=== PATIENT | male | born 1935 | race Caucasian/White ===

== ENCOUNTER → 2018-05-16 14:58 | Outpatient (CLI) | payer MEDICARE, OTHER, SELFPAY ==
[2018-05-16 17:57] LABS: Hemoglobin A1c 7.9 % (4.2-6.3)
[2018-05-16 18:01] LABS: AST(SGOT) 47 U/L (15-37); Alanine Aminotransfer ALT/SGPT 30 U/L (16-61); Albumin, Serum 3.2 g/dL (3.2-5.0); Alkaline Phosphatase 101 U/L (45-117); Anion Gap 8 (5-15); BUN 17 mg/dL (7-18); Bilirubin, Direct 0.14 mg/dL (0.00-0.30); Chloride 103 mmol/L (98-107); Cholesterol 142 mg/dL (200); EST Glomerular Filtration Rate 76 mL/min (>60); Est Glom Filt Rate - Afr Amer 92 mL/min (>60); Globulin 4.2 g/dL (2.2-4.2); Glucose 133 mg/dL (74-106); High Density Lipoprotein 42 mg/dL; Potassium 4.1 mmol/L (3.5-5.1); Protein, Total 7.4 g/dL (6.4-8.2); Sodium Level 141 mmol/L (136-145); Triglycerides 142 mg/dL; Very Low Density Lipoprotein 28 mg/dL (5-40)
[2018-05-16 18:11] LABS: Microalbumin,Random Urine 18.1 mg/L (NO RANGE EST.); Microalbumin:Creatinine Ratio 13.9 mg/g CRE (<30 mg/g CRE)
== END ==
PROVIDERS: Family Provider Family Medicine; PCP Family Medicine; Visit Provider Family Medicine
DX: E11.9 Type 2 diabetes mellitus without complications (principal)
CPT/HCPCS: 36415; 80048; 80061; 80076; 82043; 82570; 83036

== ENCOUNTER → 2019-06-02 | Outpatient (CLI) | payer MEDICARE, OTHER, SELFPAY ==
[2019-06-02 14:29] LABS: Microalbumin,Random Urine 5.5 mg/L (NO RANGE EST.); Microalbumin:Creatinine Ratio 14.1 mg/g CRE (<30 mg/g CRE)
[2019-06-02 14:47] LABS: AST(SGOT) 23 U/L (15-37); Alanine Aminotransfer ALT/SGPT 21 U/L (16-61); Alkaline Phosphatase 129 U/L (45-117); Anion Gap 6 (5-15); BUN 14 mg/dL (7-18); BUN/Creat Ratio 15.8 RATIO (10-20); Bilirubin, Direct 0.11 mg/dL (0.00-0.30); Calcium,Total 8.5 mg/dL (8.5-10.1); Chloride 103 mmol/L (98-107); Cholesterol 132 mg/dL (200); Creatinine, Serum 0.89 mg/dL (0.70-1.30); EST Glomerular Filtration Rate 87 mL/min (>60); Est Glom Filt Rate - Afr Amer 106 mL/min (>60); Globulin 4.4 g/dL (2.2-4.2); Glucose 75 mg/dL (74-106); High Density Lipoprotein 41 mg/dL; Potassium 4.1 mmol/L (3.5-5.1); Protein, Total 7.4 g/dL (6.4-8.2); Sodium Level 139 mmol/L (136-145); Triglycerides 102 mg/dL; Very Low Density Lipoprotein 20 mg/dL (5-40)
== END | disposition home or self-care (01) ==
LOC: MFPLAB 11:46
PROVIDERS: Family Provider Family Medicine; PCP Family Medicine; Referring Provider Family Medicine; Visit Provider Family Medicine
DX: E11.9 Type 2 diabetes mellitus without complications (principal)
CPT/HCPCS: 36415; 80048; 80061; 80076; 82043; 82570

== ENCOUNTER → 2019-12-25 | Outpatient (CLI) | payer MEDICARE, OTHER, SELFPAY ==
[2019-12-25 15:49] LABS: Anion Gap 3 (5-15); BUN 16 mg/dL (7-18); BUN/Creat Ratio 17.6 RATIO (10-20); Calcium,Total 8.7 mg/dL (8.5-10.1); Chloride 107 mmol/L (98-107); Creatinine, Serum 0.91 mg/dL (0.70-1.30); EST Glomerular Filtration Rate 85 mL/min (>60); Est Glom Filt Rate - Afr Amer 102 mL/min (>60); Glucose 66 mg/dL (74-106); Potassium 4.2 mmol/L (3.5-5.1); Sodium Level 139 mmol/L (136-145); T4 Total, Thyroxin 12.3 ug/dL (4.5-12.1); Thyroid Stim Hormone (TSH) 4.16 uIU/mL (0.358-3.74)
== END | disposition home or self-care (01) ==
LOC: MFPLAB 14:10
PROVIDERS: PCP Family Medicine; Visit Provider Family Medicine
DX: E03.9 Hypothyroidism, unspecified (principal); E11.8 Type 2 diabetes mellitus with unspecified complications
CPT/HCPCS: 36415; 80048; 84436; 84443

== ENCOUNTER → 2020-04-01 | Outpatient (CLI) | payer MEDICARE, OTHER, SELFPAY ==
[2020-04-01 13:31] LABS: Anion Gap 5 (5-15); BUN 15 mg/dL (7-18); BUN/Creat Ratio 14.9 RATIO (10-20); Calcium,Total 8.4 mg/dL (8.5-10.1); Chloride 102 mmol/L (98-107); Creatinine, Serum 1.01 mg/dL (0.70-1.30); EST Glomerular Filtration Rate 75 mL/min (>60); Est Glom Filt Rate - Afr Amer 91 mL/min (>60); Glucose 122 mg/dL (74-106); Potassium 3.8 mmol/L (3.5-5.1); Sodium Level 138 mmol/L (136-145); T4 Total, Thyroxin 11.7 ug/dL (4.5-12.1); Thyroid Stim Hormone (TSH) 0.81 uIU/mL (0.358-3.74)
== END | disposition home or self-care (01) ==
LOC: MFPLAB 10:55
PROVIDERS: PCP Family Medicine; Visit Provider Family Medicine
DX: E11.8 Type 2 diabetes mellitus with unspecified complications (principal); E03.9 Hypothyroidism, unspecified
CPT/HCPCS: 80048; 84436; 84443

== ENCOUNTER → 2020-10-24 10:30 | Outpatient (CLI) | payer MEDICARE, OTHER, SELFPAY ==
[2020-10-24 12:33] LABS: Thyroid Stim Hormone (TSH) 1.04 uIU/mL (0.358-3.74)
== END ==
PROVIDERS: PCP Family Medicine; Visit Provider Family Medicine
DX: E03.9 Hypothyroidism, unspecified (principal)
CPT/HCPCS: 36415; 84443

== ENCOUNTER 2020-12-21 15:51 | Outpatient (RCR) | payer MEDICARE, OTHER, SELFPAY | END 2020-12-21 23:59 | LOC: IMMUN 15:51 | PROVIDERS: PCP Family Medicine; Visit Provider Family Medicine | DX: Z23 Encounter for immunization (principal) | CPT/HCPCS: 0011A; 0012A ==

== ENCOUNTER → 2021-04-11 11:29 | Outpatient (CLI) | payer MEDICARE, OTHER, SELFPAY ==
[2021-04-11 15:04] LABS: Absolute Lymphocyte Count 1.64 X10^3/uL (0.83-4.51); Absolute Neutrophil Count 4.5 X10^3/uL (2.0-7.7); Basophil# 0.04 X10^3/uL; Basophil% 0.6 % (0-1); Eosinophil# 0.15 X10^3/uL; Eosinophils% 2.2 % (0-5); Hematocrit 42.9 % (40-54); Hemoglobin 13.2 g/dL (13.0-16.5); Lymphocyte # 1.64 X10^3/ul (0.83-4.51); Lymphocyte % 23.5 % (19-41); Mean Corp Hgb Conc 30.8 g/dL (32-36); Mean Corpuscular Hgb 30.3 pg (27.0-32.0); Mean Corpuscular Volume 98.6 fL (80-94); Mean Platelet Vol. 10.1 fl (6.2-12.0); Monocyte# 0.65 X10^3/uL; Monocyte% 9.3 % (0-10); NRBC Flagged by Analyzer 0 % (0-5); Neutrophil # 4.46 X10^3/uL (2.7-7.7); Platelet Count 288 K/mm3 (150-450); RBC Distribution Width CV 14.5 % (11.6-14.6); RBC Distribution Width SD 52.4 fl (35.1-43.9); Red Blood Count 4.35 M/mm3 (4.6-6.2)
[2021-04-11 15:22] LABS: AST(SGOT) 16 U/L (15-37); Alanine Aminotransfer ALT/SGPT 12 U/L (16-61); Albumin, Serum 2.6 g/dL (3.2-5.0); Alkaline Phosphatase 91 U/L (45-117); Bilirubin, Direct 0.09 mg/dL (0.00-0.30); Cholesterol 128 mg/dL (200); Globulin 4.8 g/dL (2.2-4.2); High Density Lipoprotein 43 mg/dL; Protein, Total 7.4 g/dL (6.4-8.2); Thyroid Stim Hormone (TSH) 1.45 uIU/mL (0.358-3.74); Triglycerides 84 mg/dL; Very Low Density Lipoprotein 17 mg/dL (5-40)
== END ==
PROVIDERS: PCP Family Medicine; Referring Provider Family Medicine; Visit Provider Family Medicine
DX: E11.8 Type 2 diabetes mellitus with unspecified complications (principal); R06.00 Dyspnea, unspecified
CPT/HCPCS: 36415; 80061; 80076; 84443; 85025

== ENCOUNTER → 2021-04-18 13:52 | Outpatient (CLI) | payer MEDICARE, OTHER, SELFPAY ==
--- NOTE | 2021-04-18 14:00 | ECHOCS_ITS ---
Reason For Study: Dyspnea on Exertion Procedure This was a 2D Doppler, Color Flow transthoracic echocardiogram. The study was technically difficult. Contrast injection was performed. Exam performed in department. Left Ventricle Based upon the 2D echocardiographic and contrast enhanced images obtained appears to be grossly normal left ventricular size, wall motion, and systolic function. The estimated ejection fraction is 55 %. Diastolic function is indeterminate. Right Ventricle Normal RV size. Normal systolic function. Atria Normal left atrium. Normal right atrium. No doppler evidence for ASD. Mitral Valve There is no mitral annular calcification. Mild focal mitral valve calcification of the anterior leaflet. Trivial mitral valve insufficiency. Tricuspid Valve Normal tricuspid valve. Trivial tricuspid valve insufficiency. Unable to estimate RV systolic pressure/pulmonary artery pressure due to technically difficult study. Aortic Valve The aortic valve is not well visualized. Pulmonic Valve The pulmonic valve is not well visualized. Great Vessels The aortic root is not well visualized. Pericardium/Pleural No pericardial effusion. Medication 22 gauge I.V. with prn adaptor inserted into left arm. Diluted definity 2ml given slow IV push to enhance endocardial definition. MMode/2D Measurements & Calculations LVIDd: 4.8 cm IVSd: 1.3 cm LA dimension: 3.7 cm LVIDs: 3.2 cm LVPWd: 1.1 cm FS: 32.4 % LAV(MOD-sp4): 42.9 ml LA A4 area: 16.5 cm2 Time Measurements MV dec time: 0.26 sec Doppler Measurements & Calculations MV E max massimo: 54.4 cm/sec Lat Peak E' Massimo: 4.2 cm/sec Med Peak E' Massimo: 5.6 cm/sec MV A max massimo: 77.0 cm/sec E/E' lat: 13.0 E/E' med: 9.8 MV E/A: 0.71 MV V2 max: 78.7 cm/sec MV P1/2t max massimo: 46.9 cm/sec Ao V2 max: 170.0 cm/sec MV max P.5 mmHg MV P1/2t: 106.0 msec Ao max P.6 mmHg MV V2 mean: 40.6 cm/sec MV dec slope: 129.7 cm/sec2 MV mean P.78 mmHg MV V2 VTI: 19.5 cm MVA(P1/2t): 2.1 cm2 LV V1 max: 64.9 cm/sec LV V1 max P.7 mmHg ECHO/Echo Complete W/ Contrast Interpretation Summary The study was technically difficult. Contrast injection was performed. Based upon the 2D echocardiographic and contrast enhanced images obtained appea rs to be grossly normal left ventricular size, wall motion, and systolic function. The estimated ejection fraction is 55 %. Mild focal mitral valve calcification of the anterior leaflet. Trivial mitral valve insufficiency. Trivial tricuspid valve insufficiency. Unable to estimate RV systolic pressure/pulmonary artery pressure due to techni cari difficult study. Diastolic function is indeterminate. Ordering Physician: Emerita Lindsay Referring Physician: Emerita Lindsay Performed By: Jimenez New RCS
== END ==
PROVIDERS: PCP Family Medicine; Referring Provider Family Medicine; Visit Provider Family Medicine
DX: R06.00 Dyspnea, unspecified (principal)
CPT/HCPCS: 93306; Q9957; A4216; C8929; J3490

== ENCOUNTER → 2021-05-12 12:11 | Outpatient (CLI) | payer MEDICARE, OTHER, SELFPAY ==
--- NOTE | 2021-05-12 12:14 | RAD_ITS ---
STUDY: X-RAY CHEST REASON FOR EXAM: Male, 85 years old. DYSPNEA TECHNIQUE: PA and lateral views of the chest. COMPARISON: 02/17/2013. FINDINGS: Small to moderate bilateral pleural effusions. Infiltrate/atelectasis in the right lower lobe. There is borderline cardiomegaly. Normal mediastinum and marleny. Normal visualized pulmonary arteries. There is atherosclerotic tortuosity of the aortic arch and descending thoracic aorta. No demonstrated acute osseous changes. There is no demonstrated abnormality of the visualized soft tissue structures of the upper abdomen. RAD/Chest PA and Lateral IMPRESSION: Bilateral pleural effusions. Right lower lung infiltrate/atelectasis Electronically Signed: Timoteo Aguirre MD at 8:52 EDT Tel , Service support ,
== END ==
PROVIDERS: PCP Family Medicine; Referring Provider Family Medicine; Visit Provider Family Medicine
DX: R06.00 Dyspnea, unspecified (principal)
CPT/HCPCS: 71046

== ENCOUNTER → 2021-06-06 12:45 | Outpatient (CLI) | payer MEDICARE, OTHER, SELFPAY ==
[2021-05-19 10:39] VITALS: BMI 31.5
--- NOTE | 2021-06-07 09:45 | PFT_ITS ---
INTRODUCTION: The patient is an 85-year-old male that presents for pulmonary function studies secondary to a diagnosis of dyspnea. Respiratory therapy reported that, although spirometry was reproducible, the patient was unable to exhale for 6 seconds. In addition, the patient was unable to do DLCO. INTERPRETATION: Forced expiration spirometry demonstrates no evidence of a large airways obstructive ventilatory defect. There was no significant response to aerosolized bronchodilators. Spirograms are of poor quality and terminate prior to 6 seconds, likely underestimating FVC. Body plethysmography was performed and revealed a decreased TLC to 2.55 L, 40% of predicted, indicative of a severe restrictive ventilatory impairment. Diffusing capacity was unable to be ob tained. IMPRESSION: Severe restrictive ventilatory impairment. Patient factors are likely to have impacted testing results.
== END ==
PROVIDERS: PCP Family Medicine; Referring Provider Internal Medicine Critical Care Medicine; Visit Provider Internal Medicine Critical Care Medicine
DX: R06.00 Dyspnea, unspecified (principal)
CPT/HCPCS: 94060; 94726

== ENCOUNTER → 2021-06-07 12:22 | Outpatient (CLI) | payer MEDICARE, OTHER, SELFPAY ==
[2021-05-19 10:39] VITALS: BMI 31.5
[2021-06-07 12:54] VITALS: PULSE 67; PULSE 71; PULSE 74; PULSE 78; O2SAT 86; O2SAT 91; O2SAT 95; O2SAT 97
--- NOTE | 2021-06-07 12:56 | CPS ---
Resting Room Air SpO2 91%. Patient walked about 50 ft and SpO2 86% on room air. Placed patient on 2 lpm O2 nasal cannula at this time and recovered SpO2 to 95%. Patient walked another 83 ft with 2 lpm O2, SpO2 95%. Patient's legs were weak and he stated that this is more than he normally walks at one time. Ended testing at this time.
--- NOTE | 2021-06-08 13:43 | PCM.PSN.6M ---
PSN 6 Minute Walk Test 6 Minute Walk Test 6 Minute Walk Test: 6 Minute Walk Test PSN:6-Minute Walk Test Start: 06/07/21 12:53 Freq: Status: Active Protocol: [id number].6MINW Document 06/07/21 12:54 MIRNA (Rec: 06/07/21 12:59 MIRNA [id number]) 6 Minute Walk Test Date Performed 06/07/21 Time Performed 12:30 Height 5 ft 10 in Weight: 99.79 kg Weight in Pounds 220.[address]: Ancelmo Crocker Assistive device used: Walker Pre-test Oxygen Delivery Method Room Air Pulse Ox (%) 91 Pulse Rate (60-100 beats/min) 71 Dyspnea Juan J Scale (0-10) 0 Exertion Juan J Scale (6-20) 6 1st minute Oxygen Delivery Method Room Air Pulse Ox (%) 86 Pulse Rate (60-100 beats/min) 78 2nd minute Oxygen Flow Rate (L/min) (L/min) 2 Oxygen Delivery Method Nasal Cannula Pulse Ox (%) 95 Pulse Rate (60-100 beats/min) 74 Dyspnea Juan J Scale (0-10) 3 Exertion Juan J Scale (6-20) 14 Post-test Oxygen Flow Rate (L/min) (L/min) 2 Oxygen Delivery Method Nasal Cannula Pulse Ox (%) 97 Pulse Rate (60-100 beats/min) 67 Full Laps Walked 2 Partial Lap, Number of Tiles Walked 15 Total Distance Walked (ft) 133 06/07/21 12:56 Cardiopulmonary Services by Sweetie Cavazos Resting Room Air SpO2 91%. Patient walked about 50 ft and SpO2 86% on room air. Placed patient on 2 lpm O2 nasal cannula at this time and recovered SpO2 to 95%. Patient walked another 83 ft with 2 lpm O2, SpO2 95%. Patient's legs were weak and he stated that this is more than he normally walks at one time. Ended testing at this time. Initialized on 06/07/21 12:56 - END OF NOTE Interpretation Interpretation: The patient ambulated 133 feet over the course of 6 minutes beginning on room air with the use of a walker. Pretesting oxygen saturation was noted to be 91% on room air. With ambulation, the farrah oxygen saturation was 86%. 2 L/min of supplemental oxygen was applied and the patient was able to complete an additional minute of testing. Patient reported leg weakness prevented the patient from walking full 6 minutes. Recommendations Recommendations: 2 L/min of supplemental oxygen should be utilized with exertion. The sensitivity for detecting additional oxygen desaturation is limited by the patient's limited walk distance.
== END ==
PROVIDERS: PCP Family Medicine; Referring Provider Internal Medicine Critical Care Medicine; Visit Provider Internal Medicine Critical Care Medicine
DX: R06.00 Dyspnea, unspecified (principal)
CPT/HCPCS: 94618

== ENCOUNTER 2021-07-08 19:31 | Inpatient (IN) | payer MEDICARE, OTHER, SELFPAY ==
[2021-07-08] VITALS (10 sets, daily range): BP systolic 84–117; BP diastolic 53–71; PULSE 79–99; RESP 12–28; TEMP 36.4; O2SAT 66–100; BMI 31.8
[2021-07-08] MEDS: 0.9% Normal Saline 1,000 ML 999 ML IV (19:40)
--- NOTE | 2021-07-08 19:46 | EKG12_ITS ---
Test Reason : SOB Blood Pressure : / mmHG Vent. Rate : 089 BPM Atrial Rate : 089 BPM P-R Int : 190 ms QRS Dur : 096 ms QT Int : 404 ms P-R-T Axes : 029 012 014 degrees QTc Int : 491 ms Sinus rhythm with Premature atrial complexes Prolonged QT Abnormal ECG Confirmed by DAILY LOPEZ, BRONSON ([id number]), editor department LARY CLEMENTE ([id number]) on 07/10/2021 1:34:58 PM Referred By: TREASURE Confirmed By:BRONSON AMBROSIO MD
--- NOTE | 2021-07-08 19:47 | EDS_ITS ---
HPI History of Present Illness Chief Complaint: General Illness Informant: patient and EMS Narrative Narrative: Patient has been feeling poorly and occasional short of breath for the last 2 days. Brought in by family calling EMS tonight because of decreased level of consciousness and inability to get up. Confused. Has a history of restrictive lung disease. Unknown if on home oxygen but hypoxic at 66% on room air here per nursing upon arrival. Also EMS states that family wondering if patient may have taken too many of his pain medication. When asked the patient of this, he states oh probably. [facility] Medical History Acute respiratory failure Diabetes Dyspnea Skin cancer Home Medications aspirin 81 mg tablet,delayed release 81 mg PO DAILY 05/19/21 [History Last Taken Unknown] atorvastatin 80 mg tablet 80 mg PO DAILY 05/19/21 [History Last Taken Unknown] levothyroxine 112 mcg capsule 112 mcg PO DAILY 05/19/21 [History Last Taken Unknown] lisinopril 10 mg-hydrochlorothiazide 12.5 mg tablet 1 tab PO DAILY 05/19/21 [History Last Taken Unknown] metoprolol succinate 200 mg tablet,extended release 24 hr 200 mg PO DAILY 05/19/21 [History Last Taken Unknown] oxybutynin chloride 5 mg tablet 10 mg PO DAILY 05/19/21 [History Last Taken Unknown] pioglitazone 30 mg tablet 30 mg PO DAILY 05/19/21 [History Last Taken Unknown] cholecalciferol (vitamin D3) [Vitamin D3] 125 mcg PO DAILY 07/08/21 [History Last Taken Unknown] hydrocodone-acetaminophen [[place]] 1 tab PO BID PRN 07/08/21 [History Last Taken Unknown] pregabalin [Lyrica] 200 mg PO DAILY 07/08/21 [History Last Taken Unknown] vit C,J-Zo-tajzy-lutein-zeaxan [PreserVision AREDS-2] 2 tab PO DAILY 07/08/21 [History Last Taken Unknown] Allergy/AdvReac Type Severity Reaction Status Date / Time No Known Allergies Allergy Verified 07/08/21 19:45 Social History Smoking Status: Former smoker quit date: 10/28/90 pack-years: 30 ROS ROS ED Review of Systems ROS Unobtainable: due to mental status EXAM Physical Exam Const Vital Signs: 07/08/21 19:32 07/08/21 19:38 07/08/21 19:39 Temperature 97.6 F L 97.6 F L Temperature Source Oral Oral Pulse Rate 99 99 Respiratory Rate 28 H 28 H Respiratory Effort Respiratory Pattern Blood Pressure 84/53 L 84/53 L Blood Pressure Mean 63 63 Pulse Ox 66 89 89 Oxygen Delivery Method Room Air Non-Rebreather Non-Rebreather Oxygen Flow Rate (L/min) 15 15 Fraction of Inspired Oxygen (FIO2) 07/08/21 19:40 07/08/21 19:57 07/08/21 20:41 Temperature 97.6 F L 97.6 F L Temperature Source Oral Temporal Pulse Rate 92 89 81 Respiratory Rate 19 H 22 H 12 Respiratory Effort Normal Respiratory Pattern Normal Blood Pressure 87/54 L 89/55 L Blood Pressure Mean 65 66 Pulse Ox 91 92 99 Oxygen Delivery Method Bi-pap Bi-pap Oxygen Flow Rate (L/min) Fraction of Inspired Oxygen (FIO2) 65 07/08/21 20:52 07/08/21 21:20 07/08/21 23:01 Temperature Temperature Source Pulse Rate 81 79 82 Respiratory Rate 16 14 19 H Respiratory Effort Respiratory Pattern Normal Blood Pressure 89/56 L 117/71 Blood Pressure Mean 67 86 Pulse Ox 100 99 100 Oxygen Delivery Method Bi-pap Bi-pap Oxygen Flow Rate (L/min) Fraction of Inspired Oxygen (FIO2) 60 07/08/21 23:22 07/09/21 00:00 Temperature Temperature Source Pulse Rate 80 Respiratory Rate 18 Respiratory Effort Respiratory Pattern Blood Pressure 126/96 H Blood Pressure Mean 106 Pulse Ox 96 99 Oxygen Delivery Method Nasal Cannula Oxygen Flow Rate (L/min) 2 Fraction of Inspired Oxygen (FIO2) Positive well nourished and well developed General Appearance ED: well developed and NAD HEENT Reports moist mucous membranes normocephalic and atraumatic Eyes PERRL and EOMs intact bilaterally Eyes Narrative: Pinpoint pupils Neck full ROM and supple Resp Resp Narrative: Very shallow respirations and lethargic, no obvious adventitious breath sounds, equal bilaterally. Trachea midline. Cardio regular rate, regular rhythm and no murmurs GI non-tender and non-distended Auscultation: normoactive bowel sounds Palpation: soft Back/Spine no CVA tenderness General Back: other FROM Extremity normal to inspection General Extremety ED: Negative for edema, pulses abnormal or tenderness General Extremity: Negative for edema or pulses abnormal Neuro oriented x3, CN's II-XII intact bilaterally and no sensory deficits noted Neuro Narrative: Confused but not aphasic Kristie Coma Scale: document GCS findings To Voice Obeys Commands Confused 13 Sensorium / Orientation: awake and alert Coordination: other (Generally weak but moves all 4 extremities symmetrically) Skin no rashes or lesions noted and no wounds MDM MDM MDM Narrative Medical decision making narrative: Initially patient had almost 1 L of fluid given by squad, was still mildly hypotensive, he initially came in 84/53 but after the first liter he was at 90 systolic. Another liter was given, and we had him on BiPAP, his VBG just after placing him on BiPAP showed a pH of 7.275 and a PCO2 of 70.4 consistent with hypoventilation (ABG was not able to be obtained). He was 65% on room air prior to giving him any oxygen. He maintained saturations in the high 90s to 100% while on BiPAP. We monitored him for a little while and his pressure came around so he did not require pressors. Soon thereafter family arrived, and then the patient admitted to one of the nurses that he took a handful of his [place] on purpose in order to try to kill himself. Apparently he has been very depressed mostly about his restrictive lung disease and inability to do much because of it. The rest of his work-up is consistent with this showing no sign of an infection, his troponin is 450 significantly elevated with a normal essentially EKG, this is consistent with myocardial damage due to prolonged hypoxemia which is likely the cause. After getting this history, while he was still lethargic I ordered Narcan 0.2 mg to be given, to help wake him up more without putting him into withdrawal. However this was not available here and we were waiting for the pharmacy to send it up and the patient became more awake without needing any stimulation, still a little confused but depressed and crying, GCS 14-15, so the Narcan was discontinued and not given. We will give him a trial off of the BiPAP, he is now on a nasal cannula and satting at 98%. I repeated his Tylenol level from the initial 28, guessing around when the 4-hour level would be after his ingestion. The level actually went down, to 18. This rules out a toxic acetaminophen overdose. Nursing approached me and there was some discussion with the patient and family about the possibility of hospice. Patient does not have the capacity to make such a decision at this time, and from reviewing his records from the pulmonary office he was still undergoing work-up for his restrictive lung disease, a CT was being ordered as an outpatient and has yet to be obtained. As I discussed with him, even after discussing with Dr. Sutherland on for pulmonary who does not know the patient as the patient sees Dr. Crocker, I do not know how severe his restrictive lung disease is from a pulmonary standpoint. After more discussion, family of which there are several members here do not feel comfortable going the hospice route right now and asked us to admit him medically for now as a DNR Comfort Care arrest which I discussed with them. They plan on having a family meeting tomorrow after night baker. Lab Data Attestation: I reviewed the patient's lab results. Labs: Laboratory Results - last 24 hr 07/08/21 07/08/21 07/08/21 19:42 19:42 19:42 WBC 7.3 RBC 3.61 L Hgb 11.0 L Hct 37.0 L MCV 102.5 H MCH 30.5 MCHC 29.7 L RDW Std Deviation 53.5 H RDW Coeff of Neo 14.2 Plt Count 245 MPV 9.2 Immature Gran % (Auto) 0.400 Neut % (Auto) 62.8 Lymph % (Auto) 24.5 [place] % (Auto) 10.5 H Eos % (Auto) 1.4 Baso % (Auto) 0.4 Absolute Neuts (auto) 4.6 Absolute Lymphs (auto) 1.78 Nucleated RBC % 0 PT 13.6 INR 1.1 APTT 29.8 Sodium 140 Potassium 4.4 Chloride 100 Carbon Dioxide 35.0 H Anion Gap 5 BUN 18 Creatinine 1.11 Estim Creat Clear Calc 55.35 Est GFR (MDRD) Af Amer 81 Est GFR (MDRD) Non-Af 67 BUN/Creatinine Ratio 16.2 Glucose 187 H Lactic Acid Calcium 8.0 L Total Bilirubin 0.40 AST 21 ALT 13 L Alkaline Phosphatase 71 Troponin I High Sens 450 H* Total Protein 6.3 L Albumin 2.0 L Globulin 4.3 H Albumin/Globulin Ratio 0.5 L Urine Color Urine Clarity Urine pH Ur Specific [place] Urine Protein Urine Glucose (UA) Urine Ketones Urine Occult Blood Urine Nitrite Urine Bilirubin Urine Urobilinogen Ur Leukocyte Esterase Urine RBC Urine WBC Ur Squamous Epith Cells Urine Bacteria Urine Mucus Salicylates Urine Opiates Screen Urine Methadone Screen Acetaminophen Ur Barbiturates Screen Ur Phencyclidine Scrn Ur Amphetamines Screen U Methamphetamin-MDMA U Benzodiazepines Scrn Urine Cocaine Screen U Cannabinoids Screen Ur Drug Screen Comment 07/08/21 07/08/21 07/08/21 19:42 19:42 20:20 WBC RBC Hgb Hct MCV MCH MCHC RDW Std Deviation RDW Coeff of Neo Plt Count MPV Immature Gran % (Auto) Neut % (Auto) Lymph % (Auto) [place] % (Auto) Eos % (Auto) Baso % (Auto) Absolute Neuts (auto) Absolute Lymphs (auto) Nucleated RBC % PT INR APTT Sodium Potassium Chloride Carbon Dioxide Anion Gap BUN Creatinine Estim Creat Clear Calc Est GFR (MDRD) Af Amer Est GFR (MDRD) Non-Af BUN/Creatinine Ratio Glucose Lactic Acid 2.5 H* Calcium Total Bilirubin AST ALT Alkaline Phosphatase Troponin I High Sens Total Protein Albumin Globulin Albumin/Globulin Ratio Urine Color Yellow Urine Clarity Clear Urine pH 6.5 Ur Specific [place] 1.015 Urine Protein 15 H Urine Glucose (UA) Normal Urine Ketones 5 H Urine Occult Blood 10 H Urine Nitrite Negative Urine Bilirubin Negative Urine Urobilinogen Normal Ur Leukocyte Esterase Negative Urine RBC 0-5 SEEN Urine WBC 0 SEEN Ur Squamous Epith Cells 0 SEEN Urine Bacteria 0 SEEN Urine Mucus 0 SEEN Salicylates < 1.7 L Urine Opiates Screen Urine Methadone Screen Acetaminophen 28.4 Ur Barbiturates Screen Ur Phencyclidine Scrn Ur Amphetamines Screen U Methamphetamin-MDMA U Benzodiazepines Scrn Urine Cocaine Screen U Cannabinoids Screen Ur Drug Screen Comment 07/08/21 07/08/21 20:20 23:20 WBC RBC Hgb Hct MCV MCH MCHC RDW Std Deviation RDW Coeff of Neo Plt Count MPV Immature Gran % (Auto) Neut % (Auto) Lymph % (Auto) [place] % (Auto) Eos % (Auto) Baso % (Auto) Absolute Neuts (auto) Absolute Lymphs (auto) Nucleated RBC % PT INR APTT Sodium Potassium Chloride Carbon Dioxide Anion Gap BUN Creatinine Estim Creat Clear Calc Est GFR (MDRD) Af Amer Est GFR (MDRD) Non-Af BUN/Creatinine Ratio Glucose Lactic Acid Calcium Total Bilirubin AST ALT Alkaline Phosphatase Troponin I High Sens Total Protein Albumin Globulin Albumin/Globulin Ratio Urine Color Urine Clarity Urine pH Ur Specific [place] Urine Protein Urine Glucose (UA) Urine Ketones Urine Occult Blood Urine Nitrite Urine Bilirubin Urine Urobilinogen Ur Leukocyte Esterase Urine RBC Urine WBC Ur Squamous Epith Cells Urine Bacteria Urine Mucus Salicylates Urine Opiates Screen POSITIVE H Urine Methadone Screen NEGATIVE Acetaminophen 18.4 Ur Barbiturates Screen NEGATIVE Ur Phencyclidine Scrn NEGATIVE Ur Amphetamines Screen NEGATIVE U Methamphetamin-MDMA NEGATIVE U Benzodiazepines Scrn NEGATIVE Urine Cocaine Screen NEGATIVE U Cannabinoids Screen NEGATIVE Ur Drug Screen Comment ABG Data ABG results: ABG 07/08/21 20:16 Specimen Type SARAH VBG pH 7.28 L VBG pO2 63 H VBG HCO3 33 H VBG Total CO2 35 H VBG O2 Sat (Calc) 88 H VBG Base Excess 6 H POC Mix VBG pCO2 Pt Tmp 70.4 H* O2 Delivery Device BiPAP Crit Call To/Read Back Yes Blood Gas Notified Whom dr coker Blood Gas Notified Time 20:18:27 Radiography Diagnostic Testing: Radiology Impression Chest X-Ray 07/08/21 20:00 IMPRESSION: 1. Moderate-sized bilateral pleural effusions which appear partially loculated. These are unchanged. 2. Stable infiltrates or atelectasis in the lung bases. ASSESSMENT: ABNORMAL report - There are abnormal findings in this report which may be related or unrelated to the reason for the exam. Electronically Signed: Cruz Ziegler MD at 20:59 EDT Tel , Service support , EKG Initial EKG: Attestation: I personally reviewed and interpreted this EKG as follows: Interpretation: Sinus Rhythm and No Acute Injury Pattern Prior EKG tracings: available for review Prior: Unchanged Discharge Plan Dx/Rx/DC Orders Clinical Impression: Intentional opiate overdose, Restrictive lung disease, Hypoxia, Non-ST elevation [place] (NSTEMI), Suicide gesture Disposition Disposition: Acute Care [facility] Capacity Capacity Assessment Tool Can the patient make a choice & communicate that choice?: Yes Can the patient understand benefits, risks and alternatives?: No Can the patient make a logical, rational choice?: No Is the choice the patient makes consistent w/ their values?: Unable to Determine Is there an impending, emergent risk to the patient?: Yes Does the patient have an Advance Directive?: Comment (Patient states he does, family was unable to find anything written down) Is there a Surrogate Available?: Yes i.e. HCPOA: Yes
[2021-07-08 19:57] LABS: Absolute Lymphocyte Count 1.78 X10^3/uL (0.83-4.51); Absolute Neutrophil Count 4.6 X10^3/uL (2.0-7.7); Basophil# 0.03 X10^3/uL; Basophil% 0.4 % (0-1); Eosinophils% 1.4 % (0-5); Lymphocyte # 1.78 X10^3/ul (0.83-4.51); Lymphocyte % 24.5 % (19-41); Mean Corp Hgb Conc 29.7 g/dL (32-36); Mean Corpuscular Hgb 30.5 pg (27.0-32.0); Mean Corpuscular Volume 102.5 fL (80-94); Mean Platelet Vol. 9.2 fl (6.2-12.0); Monocyte# 0.76 X10^3/uL; Monocyte% 10.5 % (0-10); NRBC Flagged by Analyzer 0 % (0-5); Neutrophil # 4.56 X10^3/uL (2.7-7.7); Neutrophil % 62.8 % (47-70); Platelet Count 245 K/mm3 (150-450); RBC Distribution Width CV 14.2 % (11.6-14.6); RBC Distribution Width SD 53.5 fl (35.1-43.9); Red Blood Count 3.61 M/mm3 (4.6-6.2); White Blood Count 7.3 K/mm3 (4.4-11.0)
--- NOTE | 2021-07-08 20:00 | RAD_ITS ---
EXAM: XR Chest, 1 View CLINICAL INDICATION: 85 years old, Male; sob TECHNIQUE: Frontal view of the chest. This report was created using [employer] report generation technology. COMPARISON: None. FINDINGS: Lungs and pleural spaces: Moderate-sized bilateral pleural effusions which appear partially loculated. Stable infiltrates or atelectasis in the lung bases. No pneumothorax. Heart: Unremarkable. Cardiac silhouette not enlarged. Mediastinum: Central airways and mediastinal contour are unremarkable. Bones/joints: Unremarkable. Soft tissues: Unremarkable. Other findings: Chest x-ray performed 05/12/2021. RAD/Chest 1 View (Portable) IMPRESSION: 1. Moderate-sized bilateral pleural effusions which appear partially loculated. These are unchanged. 2. Stable infiltrates or atelectasis in the lung bases. ASSESSMENT: ABNORMAL report - There are abnormal findings in this report which may be related or unrelated to the reason for the exam. Electronically Signed: Cruz Ziegler MD at 20:59 EDT Tel , Service support ,
[2021-07-08 20:07] LABS: International Normalized Ratio 1.1; Prothrombin Time (Protime)PT. 13.6 SECONDS (11.7-14.9)
[2021-07-08 20:08] LABS: Partial Thromboplast Time 29.8 Seconds (24.1-36.2)
--- NOTE | 2021-07-08 20:20 | ED.RN ---
WHILE STRAIGHT CATHING PATIENT, THIS NURSE ASKED HIM IF HE TOOK TOO MANY OF HIS NORCO AND HE REPLIED YES. THIS NURSE THEN ASKED HIM IF HE TOOK THEM BECAUSE HE WAS IN PAIN OR HE WANTED TO HURT HIMSELF AND HE REPLIED I WAS TRYING TO HURT MYSELF - I WANT TO END IT ALL. DR. AMANDA, [facility] [employer] [facility] NOTIFIED.
[2021-07-08 20:21] LABS: Blood Gas Specimen Type VEN; O2 Delivery Device BiPAP; VBG BASE EXCESS 6 mmol/L (-1.0-3.5); VBG Bicarbonate 33 mmol/L (22-26); VBG PO2 63 mmHg (25-40); VBG SO2 88 % (50-70); VBG TCO2 35 mmol/L (23-33); VBG pCO2 70.4 mmHg (41-51); VBG pH 7.28 (7.32-7.42)
[2021-07-08 20:22] LABS: ALB/GLOB Ratio 0.5 RATIO (0.9-2.4); AST(SGOT) 21 U/L (15-37); Alanine Aminotransfer ALT/SGPT 13 U/L (16-61); Alkaline Phosphatase 71 U/L (45-117); Anion Gap 5 (5-15); BUN 18 mg/dL (7-18); BUN/Creat Ratio 16.2 RATIO (10-20); Chloride 100 mmol/L (98-107); Creatinine, Serum 1.11 mg/dL (0.70-1.30); EST Glomerular Filtration Rate 67 mL/min (>60); Est Glom Filt Rate - Afr Amer 81 mL/min (>60); Estimated Creatinine Clearance 55.35 ml/min; Globulin 4.3 g/dL (2.2-4.2); Glucose 187 mg/dL (74-106); Lactic Acid 2.5 mmol/L (0.4-1.9); Potassium 4.4 mmol/L (3.5-5.1); Protein, Total 6.3 g/dL (6.4-8.2); Sodium Level 140 mmol/L (136-145); Troponin-I HS 450 pg/mL (3.0-78.0)
[2021-07-08 20:31] LABS: Bacteria 0 SEEN /hpf (None Seen); Mucous, Urine 0 SEEN /hpf (<or=2+); Squamous Epithelial Cells - UA 0 SEEN /hpf (0-5); White Blood Cells 0 SEEN /hpf (0-5)
[2021-07-08 20:32] LABS: Color, Urine Yellow (Yellow); Glucose, Dipstick Normal (Normal); Ketone-Dipstick 5 mg/dl (Negative); Leukocyte Esterase-Dipstick Negative /ul (Negative); Nitrite-Dipstick Negative (Negative); Occult Blood-Urine 10 /ul (Negative); Protein-Dipstick 15 mg/dl (Negative); Specific Gravity, Urine 1.015 (1.002-1.030); Urine Bilirubin Dipstick Negative (Negative); Urine Clarity Clear (Clear); Urine Urobilinogen Normal (Normal); Urine pH 6.5 (5.0 - 8.0)
[2021-07-08 20:39] LABS: Red Blood Cells-Urine 0-5 SEEN /hpf (0-5)
[2021-07-08 21:07] LABS: Amphetamine Urine VISTA NEGATIVE (<1000 ng/mL); Barbiturate Urine VISTA NEGATIVE (< 200 ng/mL); Benzodiazepine Urine VISTA NEGATIVE (< 200 ng/mL); Cocaine Urine VISTA NEGATIVE (< 300 ng/mL); Ecstacy Urine VISTA NEGATIVE (< 500 ng/mL); Methadone Urine VISTA NEGATIVE (< 300 ng/mL); PCP Urine VISTA NEGATIVE (< 25 ng/mL); THC Urine VISTA NEGATIVE (< 50 ng/mL); Vista UDS pH Range 6
--- NOTE | 2021-07-08 21:36 | CM.ED ---
SW Note ARMEN Simpson advised that patient took norco overdose and voiced that he was attempting to self harm and hurt self. SW updated MD and sitter needs to be in place. 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 Candida OBRIEN
[2021-07-08 21:52] LABS: Acetaminophen (Tylenol) Level 28.4 ug/mL (10.0-30.0); Salicylate < 1.7 mg/dL (2.8-20.0)
[2021-07-08 23:52] LABS: Reflex Lactate? Y
[2021-07-09] VITALS (13 sets, daily range): BP systolic 99–134; BP diastolic 67–96; PULSE 75–102; RESP 17–21; TEMP 36.1–37; O2SAT 95–100; BMI 36.3
[2021-07-09 00:14] LABS: Acetaminophen (Tylenol) Level 18.4 ug/mL (10.0-30.0)
[2021-07-09 00:46] LABS: Lactic Acid 1.5 mmol/L (0.4-1.9)
--- NOTE | 2021-07-09 00:54 | ED.RN ---
PT OBSERVED SEVERAL TIMES THROUGHOUT ED STAY CRYING, STATING IT JUST WANTS IT ALL TO BE OVER. HE REPORTS NOT WANTING TO LIVE ANYMORE AND HE BELIEVES IN [facility].
--- NOTE | 2021-07-09 01:09 | PCM.HP.STD ---
HPI - General General Date of Admission: 07/09/21 HPI Narrative JACOB MEADE, is a 85 M who presents after being found altered with a decreased level of consciousness by his family. He has a history of peripheral neuropathy that is so severe that he has very poor balance with a walker at home and has difficulty getting around as well as having significant shortness of breath secondary to her restrictive lung disease. He has been placed on oxygen by his jar filler. It appears that today he decided that he no longer wanted to be struggling and therefore purposefully overdosed on his narcotics. He appears to be doing much better now that he is no longer hypoxic down to 66%. He is more alert. He was found to have an elevated troponin which is likely demand ischemia due to his hypoxia therefore will trend now that he is maintaining his oxygen saturations. [facility] Medical History (Updated 07/09/21 @ 02:[address] Eliezer Powers MD) Acute respiratory failure Diabetes Dyspnea Skin cancer Home Medications aspirin 81 mg tablet,delayed release 81 mg PO DAILY 05/19/21 [History Last Taken Unknown] atorvastatin 80 mg tablet 80 mg PO DAILY 05/19/21 [History Last Taken Unknown] levothyroxine 112 mcg capsule 112 mcg PO DAILY 05/19/21 [History Last Taken Unknown] lisinopril 10 mg-hydrochlorothiazide 12.5 mg tablet 1 tab PO DAILY 05/19/21 [History Last Taken Unknown] metoprolol succinate 200 mg tablet,extended release 24 hr 200 mg PO DAILY 05/19/21 [History Last Taken Unknown] oxybutynin chloride 5 mg tablet 10 mg PO DAILY 05/19/21 [History Last Taken Unknown] pioglitazone 30 mg tablet 30 mg PO DAILY 05/19/21 [History Last Taken Unknown] cholecalciferol (vitamin D3) [Vitamin D3] 125 mcg PO DAILY 07/08/21 [History Last Taken Unknown] hydrocodone-acetaminophen [[place]] 1 tab PO BID PRN 07/08/21 [History Last Taken Unknown] pregabalin [Lyrica] 200 mg PO DAILY 07/08/21 [History Last Taken Unknown] vit C,M-Yz-uxfjf-lutein-zeaxan [PreserVision AREDS-2] 2 tab PO DAILY 07/08/21 [History Last Taken Unknown] Allergy/AdvReac Type Severity Reaction Status Date / Time No Known Allergies Allergy Verified 07/08/21 19:45 Family History (Updated 07/09/21 @ 02:[address] Eliezer Powers MD) Other Heart disease Surgical History (Updated 07/09/21 @ 02:[address] Eliezer Powers MD) Status post surgical removal of malignant neoplasm of skin Social History (Reviewed 06/16/21 @ 11:12 by Mery Foley RECONCILIATION MACHINE OPERATOR, RECONCILIATION MACHINE OPERATOR-C) Smoking Status: Former smoker quit date: 10/28/90 pack-years: 30 ROS Constitutional Constitutional: Denies chills, fatigue, fever(s) or malaise Eyes Eyes: Denies blurry vision ENT HEENT: Denies headache(s) or nasal discharge Cardiovascular Cardiovascular: Denies chest pain, dyspnea on exertion or syncope Respiratory/Chest Respiratory/Chest: Reports shortness of breath at rest and shortness of breath with exertion; Denies cough Gastrointestinal Gastrointestinal: Denies constipation, diarrhea, nausea or vomiting Genitourinary Genitourinary: Denies dysuria Neurologic Neurologic: Denies focal weakness, numbness or tremor(s) Psychiatric Psychiatric: Denies anxiety or depression Vital Signs Vital Signs Vital Signs: 07/08/21 19:32 07/08/21 19:38 07/08/21 19:39 Temperature 97.6 F L 97.6 F L Temperature Source Oral Oral Pulse Rate 99 99 Respiratory Rate 28 H 28 H Respiratory Effort Respiratory Pattern Blood Pressure 84/53 L 84/53 L Blood Pressure Mean 63 63 Pulse Ox 66 89 89 Oxygen Delivery Method Room Air Non-Rebreather Non-Rebreather Oxygen Flow Rate (L/min) 15 15 Fraction of Inspired Oxygen (FIO2) 07/08/21 19:40 07/08/21 19:57 07/08/21 20:41 Temperature 97.6 F L 97.6 F L Temperature Source Oral Temporal Pulse Rate 92 89 81 Respiratory Rate 19 H 22 H 12 Respiratory Effort Normal Respiratory Pattern Normal Blood Pressure 87/54 L 89/55 L Blood Pressure Mean 65 66 Pulse Ox 91 92 99 Oxygen Delivery Method Bi-pap Bi-pap Oxygen Flow Rate (L/min) Fraction of Inspired Oxygen (FIO2) 65 07/08/21 20:52 07/08/21 21:20 07/08/21 23:01 Temperature Temperature Source Pulse Rate 81 79 82 Respiratory Rate 16 14 19 H Respiratory Effort Respiratory Pattern Normal Blood Pressure 89/56 L 117/71 Blood Pressure Mean 67 86 Pulse Ox 100 99 100 Oxygen Delivery Method Bi-pap Bi-pap Oxygen Flow Rate (L/min) Fraction of Inspired Oxygen (FIO2) 60 07/08/21 23:22 07/09/21 00:00 07/09/21 00:50 Temperature 97 F L Temperature Source Temporal Pulse Rate 80 81 Respiratory Rate 18 20 H Respiratory Effort Respiratory Pattern Blood Pressure 126/96 H 99/67 Blood Pressure Mean 106 77 Pulse Ox 96 99 100 Oxygen Delivery Method Nasal Cannula Nasal Cannula Oxygen Flow Rate (L/min) 2 2 Fraction of Inspired Oxygen (FIO2) 07/09/21 01:00 Temperature Temperature Source Pulse Rate 79 Respiratory Rate 21 H Respiratory Effort Respiratory Pattern Blood Pressure 99/76 Blood Pressure Mean 83 Pulse Ox 98 Oxygen Delivery Method Oxygen Flow Rate (L/min) Fraction of Inspired Oxygen (FIO2) Weight Weight: 234 lb 9.149 oz Body Mass Index (BMI) 31.8 Physical Exam Const alert, oriented x3 and no apparent distress General Appearance: cooperative HEENT normocephalic and moist oral mucous membranes Eyes PERRL, EOMs intact bilaterally and conjunctivae normal Neck supple and no JVD Resp normal respiratory effort, no retractions, no use of accessory muscles and clear to auscultation bilaterally Auscultation: Negative for crackles, rales, rhonchi or wheezes Cardio regular rate, regular rhythm, S1 normal heart sound, S2 normal heart sound and no murmurs GI soft to palpation, non-tender and non-distended; Negative for hepatosplenomegaly Extremity General Extremity: clubbing and edema; Negative for cyanosis Skin no rashes or lesions noted Neuro no focal motor deficits and no sensory deficits noted Psych affect normal Appearance: appropriate Results Lab / Micro Data Result Diagrams: 07/08/21 19:42 07/08/21 19:42 Labs: Laboratory Results - last 24 hr 07/08/21 19:42: WBC 7.3, RBC 3.61 L, Hgb 11.0 L, Hct 37.0 L, MCV 102.5 H, MCH 30.5, MCHC 29.7 L, RDW Std Deviation 53.5 H, RDW Coeff of Neo 14.2, Plt Count 245, MPV 9.2, Immature Gran % (Auto) 0.400, Neut % (Auto) 62.8, Lymph % (Auto) 24.5, [place] % (Auto) 10.5 H, Eos % (Auto) 1.4, Baso % (Auto) 0.4, Absolute Neuts (auto) 4.6, Absolute Lymphs (auto) 1.78, Nucleated RBC % 0 07/08/21 19:42: PT 13.6, INR 1.1, APTT 29.8 07/08/21 19:42: Sodium 140, Potassium 4.4, Chloride 100, Carbon Dioxide 35.0 H, Anion Gap 5, BUN 18, Creatinine 1.11, Estim Creat Clear Calc 55.35, Est GFR (MDRD) Af Amer 81, Est GFR (MDRD) Non-Af 67, BUN/Creatinine Ratio 16.2, Glucose 187 H, Calcium 8.0 L, Total Bilirubin 0.40, AST 21, ALT 13 L, Alkaline Phosphatase 71, Troponin I High Sens 450 H*, Total Protein 6.3 L, Albumin 2.0 L, Globulin 4.3 H, Albumin/Globulin Ratio 0.5 L 07/08/21 19:42: Lactic Acid 2.5 H* 07/08/21 19:42: Salicylates < 1.7 L, Acetaminophen 28.4 07/08/21 20:20: Urine Color Yellow, Urine Clarity Clear, Urine pH 6.5, Ur Specific [place] 1.015, Urine Protein 15 H, Urine Glucose (UA) Normal, Urine Ketones 5 H, Urine Occult Blood 10 H, Urine Nitrite Negative, Urine Bilirubin Negative, Urine Urobilinogen Normal, Ur Leukocyte Esterase Negative, Urine RBC 0-5 SEEN, Urine WBC 0 SEEN, Ur Squamous Epith Cells 0 SEEN, Urine Bacteria 0 SEEN, Urine Mucus 0 SEEN 07/08/21 20:20: Urine Opiates Screen POSITIVE H, Urine Methadone Screen NEGATIVE, Ur Barbiturates Screen NEGATIVE, Ur Phencyclidine Scrn NEGATIVE, Ur Amphetamines Screen NEGATIVE, U Methamphetamin-MDMA NEGATIVE, U Benzodiazepines Scrn NEGATIVE, Urine Cocaine Screen NEGATIVE, U Cannabinoids Screen NEGATIVE, Ur Drug Screen Comment 07/08/21 23:20: Acetaminophen 18.4 07/09/21 00:10: Lactic Acid 1.5 Micro: Microbiology 07/08/21 19:54 Nasal Secretion SARS-CoV-2 Antigen (Rapid) - Final ABG Data ABG results: ABG 07/08/21 20:16 Specimen Type SARAH VBG pH 7.28 L VBG pO2 63 H VBG HCO3 33 H VBG Total CO2 35 H VBG O2 Sat (Calc) 88 H VBG Base Excess 6 H POC Mix VBG pCO2 Pt Tmp 70.4 H* O2 Delivery Device BiPAP Crit Call To/Read Back Yes Blood Gas Notified Whom dr coker Blood Gas Notified Time 20:18:27 Radiology Impression Chest X-Ray 07/08/21 20:00 IMPRESSION: 1. Moderate-sized bilateral pleural effusions which appear partially loculated. These are unchanged. 2. Stable infiltrates or atelectasis in the lung bases. ASSESSMENT: ABNORMAL report - There are abnormal findings in this report which may be related or unrelated to the reason for the exam. Electronically Signed: Cruz Ziegler MD at 20:59 EDT Tel , Service support , Assessment & Plan Assessment/Plan (1) Intentional opiate overdose: (2) Restrictive lung disease: (3) Diabetes: (4) Elevated troponin: PLAN: 1. Intentional opiate overdose with acute hypoxia and elevated troponin -He decided he no longer wanted to live with his restrictive lung disease and his severe peripheral neuropathy from his diabetes which has limited his ability to ambulate and he is unsteady on his feet because of this -He no longer wants to pursue any type of treatments or therapy, did have a 30-minute discussion with him and his family about his advance care planning and his prognosis, they would like to meet with hospice -We will hold off on any more narcotics tonight -May consider an antidepressant secondary to a suicide attempt he likely has major component of depression given his limited physical ability -He may likely need to be in a correction on discharge but will await to see whether they like to proceed with hospice care -We will trend his troponins, but this is likely secondary to his severe hypoxia 2. HTN/HLD -Blood pressures are stable -We will continue with his home lisinopril, hydrochlorothiazide, metoprolol -Continue with statin 3. Hypothyroidism -Stable -Continue Synthroid 4. DM2 -We will hold his home oral medications -Start sliding scale insulin with Accu-Cheks AC at bedtime DVT: Lovenox Charges/Coding Visit Charges OBSV E&M: 27913 Initial observation care L3 Procedures Hospitalists Procedures: 74654 Advncd Care Plan 30 Min
[2021-07-09 03:00] LABS: Troponin-I HS 850 pg/mL (3.0-78.0)
[2021-07-09] MEDS: Levothyroxine 112 MCG Tablet PO (06:23)
[2021-07-09] MEDS: Menthol/Lanolin/Calamine/Znox 113 GM Tube 1 APPLIC TOPICAL ×2 (06:26→21:09)
[2021-07-09 06:59] LABS: Absolute Lymphocyte Count 1.52 X10^3/uL (0.83-4.51); Absolute Neutrophil Count 4.2 X10^3/uL (2.0-7.7); Basophil# 0.02 X10^3/uL; Basophil% 0.3 % (0-1); Eosinophil# 0.03 X10^3/uL; Eosinophils% 0.5 % (0-5); Hematocrit 35.5 % (40-54); Hemoglobin 10.5 g/dL (13.0-16.5); Lymphocyte # 1.52 X10^3/ul (0.83-4.51); Lymphocyte % 23.2 % (19-41); Mean Corp Hgb Conc 29.6 g/dL (32-36); Mean Corpuscular Hgb 30.3 pg (27.0-32.0); Mean Corpuscular Volume 102.6 fL (80-94); Mean Platelet Vol. 9.6 fl (6.2-12.0); Monocyte# 0.72 X10^3/uL; NRBC Flagged by Analyzer 0 % (0-5); Neutrophil # 4.24 X10^3/uL (2.7-7.7); Neutrophil % 64.7 % (47-70); Platelet Count 227 K/mm3 (150-450); RBC Distribution Width CV 14.1 % (11.6-14.6); RBC Distribution Width SD 53.8 fl (35.1-43.9); Red Blood Count 3.46 M/mm3 (4.6-6.2); White Blood Count 6.6 K/mm3 (4.4-11.0)
[2021-07-09 07:00] LABS: Bedside Glucose 110 mg/dL (70-110)
[2021-07-09 08:02] LABS: Anion Gap 2 (5-15); BUN 22 mg/dL (7-18); BUN/Creat Ratio 24.6 RATIO (10-20); Calcium,Total 8.4 mg/dL (8.5-10.1); Chloride 101 mmol/L (98-107); EST Glomerular Filtration Rate 86 mL/min (>60); Est Glom Filt Rate - Afr Amer 104 mL/min (>60); Estimated Creatinine Clearance 56.12 ml/min; Glucose 117 mg/dL (74-106); Potassium 4.4 mmol/L (3.5-5.1); Sodium Level 139 mmol/L (136-145); Troponin-I HS 914 pg/mL (3.0-78.0)
--- NOTE | 2021-07-09 09:14 | NURSING ---
Pt will not keep oxygen on. 84% on RA. Pt refusing to keep oxygen on. MD notified. This RN tried multiple times to reapply oxygen and pt refusing and agitated. security control center operatorARMEN Silveira RN notified and talked to pt.
--- NOTE | 2021-07-09 09:18 | NURSING ---
This RN was able to talk pt in to keeping oxygen on. Currently on 2LNC.
--- NOTE | 2021-07-09 09:22 | NURSING ---
This RN called Sharda, patient's daughter. I inquired if they had a plan with a meeting with hospice and she said nothing has been established at this time. I stated I would call Hospice and get that communication going. Sharda agreed to be liaison. I encouraged family to come in as soon as possible as patient is incredibly tearful and resistant to care. Sharda responded welcome to my world.
[2021-07-09] MEDS: ALPRAZolam 0.5 MG Tablet PO ×2 (09:30→21:27)
[2021-07-09] MEDS: hydroCHLOROthiazide 12.5mg 12.5 MG PO (10:50)
[2021-07-09] MEDS: Aspirin E.C. 81 MG Tablet PO (10:50)
[2021-07-09] MEDS: Lisinopril 10 MG Tablet PO (10:50)
[2021-07-09] MEDS: Metoprolol(XL)Succ 200 MG Tablet PO (11:32)
[2021-07-09 11:35] LABS: Bedside Glucose 123 mg/dL (70-110)
--- NOTE | 2021-07-09 16:20 | NURSING ---
Patient no longer requires suicide precautions, per crisis. Sitter pulled from room at this time.
[2021-07-09 16:56] LABS: Bedside Glucose 124 mg/dL (70-110)
--- NOTE | 2021-07-09 18:52 | PCM.HOSP.N ---
Hospitalist Note Patient was seen and examined briefly today, I talked with his sudzvvsu-pp-zzg and his daughter today, there is some discrepancy about how much Vicodin the patient actually took last night, also according to his daughter, patient did not have his oxygen on when he was found confused at home. I talked extensively with crisis today, it is unclear that the patient was actually trying to commit suicide by taking too much narcotics at home, he told crisis that he just took too many Vicodin because he was in pain and it made him feel better. At this point, according to the [id number], family members are unable to take care of the patient at home, he has been on oxygen for a month and according to the [id number]-ib-[id number], during that month he has become nonambulatory and depends on his for his total care, according to the [id number], he will not even try to get up out of a chair by himself. I think the patient has an underlying depression based on what he discussed with crisis today, I have elected to start him on an antidepressant and an antianxiety medication as needed. Patient will need placement in a half-way facility short-term for strengthening-family that I talked to today is in agreement with this plan. Patient will need to consent to placement, family members will talk to the patient about this.
--- NOTE | 2021-07-09 19:53 | PCS.PANDOC ---
PANDEMIC DOCUMENTATION INITIATED: Date: 06/12/2021 Time: 190
[2021-07-09] MEDS: Atorvastatin Calcium 80 MG Tablet PO (21:09)
[2021-07-09] MEDS: DULoxetine Hcl 30 MG Capsule PO (21:09)
[2021-07-09] MEDS: MELATONIN 3 MG TABLET PO (21:27)
[2021-07-09 21:36] LABS: Bedside Glucose 159 mg/dL (70-110)
[2021-07-10] VITALS (8 sets, daily range): BP systolic 111–135; BP diastolic 57–78; PULSE 66–82; RESP 16–18; TEMP 36.5–36.7; O2SAT 93–98
[2021-07-10 00:46] LABS: Bedside Glucose 177 mg/dL (70-110)
[2021-07-10] MEDS: Insulin Lispro 100 UNIT/ML INSULN.PEN SC ×2 (06:29→17:21)
[2021-07-10] MEDS: Menthol/Lanolin/Calamine/Znox 113 GM Tube 1 APPLIC TOPICAL ×2 (06:29→13:27)
[2021-07-10] MEDS: Levothyroxine 112 MCG Tablet PO (06:29)
[2021-07-10 06:30] LABS: Bedside Glucose 233 mg/dL (70-110)
[2021-07-10] MEDS: Enoxaparin 40 MG/0.4 ML Syringe SC (09:52)
[2021-07-10] MEDS: Lisinopril 10 MG Tablet PO (09:53)
[2021-07-10] MEDS: hydroCHLOROthiazide 12.5mg 12.5 MG PO (09:53)
[2021-07-10] MEDS: Metoprolol(XL)Succ 200 MG Tablet PO (09:53)
[2021-07-10] MEDS: DULoxetine Hcl 30 MG Capsule PO (09:54)
[2021-07-10] MEDS: Aspirin E.C. 81 MG Tablet PO (09:54)
[2021-07-10 11:30] LABS: Bedside Glucose 160 mg/dL (70-110)
--- NOTE | 2021-07-10 12:30 | CASEMGMT ---
Per physician patient is agreeable to going [facility]. SW called TCU and they are full. SW then met with patient, introduced self and role at [facility]. SW confirmed that he is agreeable to going to [facility] or [facility]. SW let him know SW sent a referral to [facility]. DASHAWN told him SW will follow up with him when SW has updates. Referral was faxed to [facility]. Await their response. DASHAWN will check in with family as well to update them on patient. Julia Lara TAX EXPERT JOANNE
--- NOTE | 2021-07-10 12:55 | CASEMGMT ---
DASHAWN called patient's daughter, Sharda. Introduced self and role at [facility]. SW let her know that patient has agreed to go to [facility]. DASHAWN told her SW sent the referral and is waiting on them to get back to . They were surprised that he agreed to go anywhere. They asked if this was short term for therapy. DASHAWN told him that is the plan. They asked if he would be there 20 days. DASHAWN told them that it depends on how he does with therapy. DASHAWN told them Medicare pays for days 1-20, but that does not mean he has to stay for 20 days. He could be ready before then based on his therapy. They asked if patient will let them in to see him if they come in. DASHAWN told them DASHAWN is not sure. Julia RUBIO
--- NOTE | 2021-07-10 13:50 | CASEMGMT ---
DASHAWN received a call from Melissa at [facility]. She asked DASHAWN to fax the report from crisis. SW faxed report. She asked DASHAWN to set up transport for . DASHAWN requested a rapid COVID be done on patient as [facility] requires a test within 24 hours of discharge. DASHAWN notified physician. DASHAWN will also talk with patient and his family to update them. Julia Lara MSW JOANNE
--- NOTE | 2021-07-10 14:28 | CASEMGMT ---
DASHAWN let patient know [facility] can take him and he will go today. SW let him know he will get picked up at 7p. SW called and left a message for patient's daughter Sharda. Await orders. Patient's daughter and son then arrived at [facility]. SW let them know the plan. They asked if they could talk with the physician. DASHAWN told them SW will text him and let him know. SW did text physician and he said he would be available in about 30 min. DASHAWN let patient's family know this information. Julia RUBIO
--- NOTE | 2021-07-10 15:53 | CASEMGMT ---
SW will leave a green sheet for confidential secretary to fax orders to [facility]. Plan: Patient will be discharged to [facility] under skilled level of care on a convalescent stay. [facility] will transport him at 7p via wheelchair van. Julia RUBIO
[2021-07-10 16:16] LABS: Bedside Glucose 178 mg/dL (70-110)
--- NOTE | 2021-07-10 16:21 | CASEMGMT ---
DASHAWN faxed patient's negative COVID test from today and also his slate picker time of 7p to [facility]. Julia Lara TRAINING AND DEVELOPMENT PROFESSIONAL JOANNE
--- NOTE | 2021-07-10 18:02 | TREXTCAR_ITS ---
Diet 07/09/21 12:16 Diet: Regular -1800-calorie ADA Is pt able to select menu?: Yes Routine Orders/Code Status O2 Liters per Minute: 2 O2 Frequency: Continuous Keep PO Greater than or Equal to (%): 90 Code Status: DNRCC-A (No intubation) Wound(s) BLE: Wound Type: Abrasion TERESITA BUTTOCKS: Wound Type: Pressure Injury RT EAR: Wound Type: SKIN CA TOP OF HEAD: Wound Type: CA Therapies Weight Bearing: Weight bearing as tolerated Physical Therapy: Eval and Treat Occupational Therapy: Eval and Treat Problem/Diagnosis (1) Intentional opiate overdose: Status: Acute Comment: There is some question that this was an intentional overdose, patient may have unintentionally taken too many [place] (2) Restrictive lung disease: Status: Acute (3) Diabetes: Status: Acute (4) Elevated troponin: Status: Acute (5) Depression: Status: Acute (6) Anxiety: Status: Acute (7) Osteoarthritis: Status: Acute (8) Chronic respiratory failure: Status: Chronic (9) NSTEMI, initial episode of care: Status: Acute Comment: Treated conservatively Allergies/Procedures Done in Hospital Allergies No Known Allergies Allergy (Verified 07/08/21 19:45) Procedures: None Type of Care/Length of Stay Estimated LOS: Convalescent Care Less Than 30 days Type of Care Needed: Skilled Rehab Potential: Good Prognosis: Good Additional Orders/Day of Discharge Additional Orders: Please have psychology or psychiatry see patient for [facility]- [facility] at [facility] H&P will serve as current which was dated: 07/09/21 Day of Discharge: 07/10/21 Dietary and Speech Recommendations Dietitian Recommendations/Changes: 1800-calorie ADA; 120mL glucerna w/ medpass if pt agreeable Discharge Plan Admission Admit Date/Time: 07/09/21 18:55 Primary Reason for Your Visit: Accidental/intentional overdose of prescription [place] Attending Provider: Sree Deal Primary Care Provider: Emerita Lindsay Consulting Providers: Aurora Krishna ; Shayne Terrazas ; Karlee Mancia ; Radha Chun ; Haydee Mojica ; Daija Dickens ASSEMBLER [employer]ILDING Discharge Orders/Prescriptions Prescriptions: New acetaminophen [Tylenol] 325 mg Tablet 650 mg PO Q6H PRN PRN (Reason: Pain Score 1-10/Temp > 100.7 F) Qty: 0 RF: 0 melatonin 3 mg Tablet 3 mg PO QHS PRN PRN (Reason: Insomnia) Qty: 0 RF: 0 lisinopril 10 mg Tablet 10 mg PO DAILY Qty: 1 RF: 0 hydrochlorothiazide 12.5 mg Capsule 12.5 mg PO DAILY Qty: 1 RF: 0 duloxetine 30 mg Capsule,Delayed Release(Dr/Ec) 60 mg PO DAILY Qty: 0 RF: 0 menthol-zinc oxide [Calmoseptine] 0.44-20.6 % Ointment 1 applic topical TID Qty: 0 RF: 0 alprazolam [Xanax] 0.25 mg tablet 0.25 mg PO TID PRN (Reason: anxiety) 7 Days Qty: 10 RF: 0 isosorbide mononitrate 30 mg tablet extended release 24 hr 30 mg PO DAILY Qty: 1 RF: 0 hydrocodone-acetaminophen 5-325 mg tablet 1 tab PO BID PRN (Reason: pain) 7 Days Qty: 10 RF: 0 Continued aspirin 81 mg tablet,delayed release (DR/EC) 81 mg PO DAILY RF: 0 levothyroxine 112 mcg capsule 112 mcg PO DAILY RF: 0 metoprolol succinate 200 mg tablet extended release 24 hr 200 mg PO DAILY RF: 0 atorvastatin 80 mg tablet 80 mg PO DAILY RF: 0 pioglitazone 30 mg tablet 30 mg PO DAILY RF: 0 cholecalciferol (vitamin D3) [Vitamin D3] 125 mcg (5,000 unit) Tablet 125 mcg PO DAILY RF: 0 PreserVision AREDS-2 250-90-40-1 mg Capsule 2 tab PO DAILY RF: 0 hydrocodone-acetaminophen 5-325 mg Tablet 1 tab PO BID PRN (Reason: Pain) 7 Days Qty: 10 RF: 0 Discontinued lisinopril-hydrochlorothiazide 10-12.5 mg tablet 1 tab PO DAILY RF: 0 oxybutynin chloride 5 mg tablet 10 mg PO DAILY RF: 0 pregabalin [Lyrica] 100 mg Capsule 200 mg PO DAILY RF: 0 Referrals / Follow Up: Emerita Lindsay MD [Primary Care Provider] - Disposition Disposition (needs filled in before D/C Order can be placed): Long-Term Facility
--- NOTE | 2021-07-10 21:16 | DS.PCM_ITS ---
Providers Date of Admission: 07/09/21 Date of Discharge: 07/10/21 Primary Care Physician: Dr. Emerita Lindsay MD Consultations 07/09/21 09:25 Consult: Hospice / Palliative Care Routine Consulting Provider: [facility] Reason for Consult: Intentional overdose- Patient wants to be comfortable. EMERGENT Consult: No MD Notified: Yes Date Notified: 07/09/21 Time Notified: 09:25 Method of Notification: paged Reason For Visit: INTENTIONAL OVERDOSE WITH ELEVATED TROPONIN Diagnosis Discharge Diagnosis (1) Intentional opiate overdose: Status: Acute Code(s): T40.602A - Poisoning by unspecified narcotics, intentional self-harm, initial encounter (2) Restrictive lung disease: Status: Acute Code(s): J98.4 - Other disorders of lung (3) Diabetes: Status: Acute Code(s): E11.9 - Type 2 diabetes mellitus without complications (4) Elevated troponin: Status: Acute Code(s): R77.8 - Other specified abnormalities of plasma proteins (5) Depression: Status: Acute Code(s): F32.9 - Major depressive disorder, single episode, unspecified (6) Anxiety: Status: Acute Code(s): F41.9 - Anxiety disorder, unspecified (7) Osteoarthritis: Status: Acute Code(s): M19.90 - Unspecified osteoarthritis, unspecified site (8) Chronic respiratory failure: Status: Chronic Code(s): J96.10 - Chronic respiratory failure, unspecified whether with hypoxia or hypercapnia (9) NSTEMI, initial episode of care: Status: Acute Code(s): I21.4 - Non-ST elevation (NSTEMI) myocardial infarction Plan: 1. Prescription narcotic overdose-unknown whether intentional or unintentional #2 non-STEMI type II #3 type 2 diabetes #4 hyperlipidemia #5 chronic depression #6 chronic anxiety #7 restrictive lung disease #8 chronic hypoxic respiratory failure secondary to #7 #9 lactic acidosis-etiology unclear No evidence for sepsis, severe sepsis, or septic shock Medications at Discharge Home Medications aspirin 81 mg tablet,delayed release 81 mg PO DAILY 05/19/21 atorvastatin 80 mg tablet 80 mg PO DAILY 05/19/21 levothyroxine 112 mcg capsule 112 mcg PO DAILY 05/19/21 metoprolol succinate 200 mg tablet,extended release 24 hr 200 mg PO DAILY 05/19/21 pioglitazone 30 mg tablet 30 mg PO DAILY 05/19/21 PreserVision AREDS-2 2 tab PO DAILY 07/08/21 cholecalciferol (vitamin D3) [Vitamin D3] 125 mcg PO DAILY 07/08/21 acetaminophen [Tylenol] 650 mg PO Q6H PRN PRN #0 tab 07/10/21 alprazolam [Xanax] 0.25 mg PO TID PRN 7 Days #10 tab 07/10/21 duloxetine 60 mg PO DAILY #0 cap 07/10/21 hydrochlorothiazide 12.5 mg PO DAILY #1 cap 07/10/21 hydrocodone-acetaminophen 1 tab PO BID PRN 7 Days #10 tab 07/10/21 hydrocodone-acetaminophen 1 tab PO BID PRN 7 Days #10 tab 07/10/21 isosorbide mononitrate 30 mg PO DAILY #1 tab 07/10/21 lisinopril 10 mg PO DAILY #1 tab 07/10/21 melatonin 3 mg PO QHS PRN PRN #0 tab 07/10/21 menthol-zinc oxide [Calmoseptine] 1 applic TOPICAL TID #0 g 07/10/21 Hospital Course Operations None Procedures None Summary of Care Provided Minutes Spent on Discharge: 32 Hospital Course: This 85-year-old white male was seen in the emergency room at [facility] after being brought in somnolent and lethargic from home due to an overdose of prescription narcotics, in the emergency room upon interviewing the patient, he admitted that he took too many of his narcotics at home-allegedly in an attempt to hurt himself. Patient was found hypoxic at home but he was not wearing his prescribed oxygen. Patient's troponin was elevated, EKG showed no evidence of injury pattern. Patient was admitted to PCU, he was seen in consultation by crisis, crisis was told by the patient that it was not an attempted suicide that over the course of a day he took too many pain medications due to the fact he wanted to feel better and he was in too much pain. He admitted to having depression and anxiety issues but was on no medicat ions. Patient was also seen in consultation by hospice but he refused to follow-up with hospice feeling that he did not desire other services. Patient was seen by PT and OT. I contacted the family and had multiple discussions with them, it was evident that the patient's family was unable to care for the patient at home and they requested the patient go into a skilled facility at least for short-term services-patient agreed. On 07/10/2021, patient was seen and examined: On examination he appeared in good health and spirits. Vital signs as documented. Skin warm and dry and without overt rashes. Neck without JVD, neck was supple, trachea midline, thyroid was normal. Lungs clear bilaterally, normal air movement was noted. Heart exam notable for regular rhythm, normal sounds and absence of murmurs, rubs or gallops. Abdomen unremarkable and without evidence of organomegaly, masses, or abdominal aortic enlargement. Bowel sounds are present, abdomen is not distended. Extremities nonedematous, no cyanosis was noted, no clubbing was noted. Neuro: Cranial nerves II through XII are grossly intact, no focal motor deficits were noted, sensation to light touch and pinprick intact, motor exam 5/5 throughout. Psych: Patient is alert and oriented x3, he does not appear anxious or depressed, he does not appear agitated. Patient appears stable for discharge on 07/10/2021, prior to discharge, patient was placed on antidepressive therapy and medicine for anxiety, this was continued at the senior care. Patient was also written to have psychiatry or psychology follow-up with him at the senior care. Weight / BMI Weight Weight: 102.1 kg Body Mass Index (BMI) 36.3 ABG / Lab / Microbiology Data Result Diagrams: 07/09/21 06:20 07/09/21 06:20 Laboratory: Laboratory Results - last 24 hr 07/09/21 21:00: POC Glucose 159 H 07/10/21 00:36: POC Glucose 177 H 07/10/21 06:23: POC Glucose 233 H 07/10/21 11:22: POC Glucose 160 H 07/10/21 16:06: POC Glucose 178 H Microbiology: Microbiology 07/10/21 14:00 Nasal Secretion SARS-CoV-2 Antigen (Rapid) - Final 07/08/21 20:20 Urine, Random Urine Culture - Preliminary Culture exhibits no growth. 07/08/21 19:54 Nasal Secretion SARS-CoV-2 Antigen (Rapid) - Final Meaningful Use Info Meaningful Use Diagnoses (Choose all that apply): None applicable Discharge Plan Admission Admit Date/Time: 07/09/21 18:55 Primary Reason for Your Visit: Accidental/intentional overdose of prescription [place] Attending Provider: Sree Deal Primary Care Provider: Emerita Lindsay Consulting Providers: Aurora Krishna ; Shayne Terrazas ; Karlee Mancia ; Radha Chun ; Haydee Mojica ; Daija Dickens [employer] Discharge Orders/Prescriptions Prescriptions: New acetaminophen [Tylenol] 325 mg Tablet 650 mg PO Q6H PRN PRN (Reason: Pain Score 1-10/Temp > 100.7 F) Qty: 0 RF: 0 melatonin 3 mg Tablet 3 mg PO QHS PRN PRN (Reason: Insomnia) Qty: 0 RF: 0 lisinopril 10 mg Tablet 10 mg PO DAILY Qty: 1 RF: 0 hydrochlorothiazide 12.5 mg Capsule 12.5 mg PO DAILY Qty: 1 RF: 0 duloxetine 30 mg Capsule,Delayed Release(Dr/Ec) 60 mg PO DAILY Qty: 0 RF: 0 menthol-zinc oxide [Calmoseptine] 0.44-20.6 % Ointment 1 applic topical TID Qty: 0 RF: 0 alprazolam [Xanax] 0.25 mg tablet 0.25 mg PO TID PRN (Reason: anxiety) 7 Days Qty: 10 RF: 0 isosorbide mononitrate 30 mg tablet extended release 24 hr 30 mg PO DAILY Qty: 1 RF: 0 hydrocodone-acetaminophen 5-325 mg tablet 1 tab PO BID PRN (Reason: pain) 7 Days Qty: 10 RF: 0 Continued aspirin 81 mg tablet,delayed release (DR/EC) 81 mg PO DAILY RF: 0 levothyroxine 112 mcg capsule 112 mcg PO DAILY RF: 0 metoprolol succinate 200 mg tablet extended release 24 hr 200 mg PO DAILY RF: 0 atorvastatin 80 mg tablet 80 mg PO DAILY RF: 0 pioglitazone 30 mg tablet 30 mg PO DAILY RF: 0 cholecalciferol (vitamin D3) [Vitamin D3] 125 mcg (5,000 unit) Tablet 125 mcg PO DAILY RF: 0 PreserVision AREDS-2 250-90-40-1 mg Capsule 2 tab PO DAILY RF: 0 hydrocodone-acetaminophen 5-325 mg Tablet 1 tab PO BID PRN (Reason: Pain) 7 Days Qty: 10 RF: 0 Discontinued lisinopril-hydrochlorothiazide 10-12.5 mg tablet 1 tab PO DAILY RF: 0 oxybutynin chloride 5 mg tablet 10 mg PO DAILY RF: 0 pregabalin [Lyrica] 100 mg Capsule 200 mg PO DAILY RF: 0 Referrals / Follow Up: Emerita Lindsay MD [Primary Care Provider] - Disposition Disposition (needs filled in before D/C Order can be placed): Custodial Facility Charges/Coding Visit Charges Inpatient E&M: 52230 Disch Hosp
== END 2021-07-10 19:15 | disposition skilled nursing facility (03) | DRG 917 ==
LOC: ED 23:32 → PCU 07-09 05:05
PROVIDERS: Admitting Provider Family Medicine; Emergency Provider Emergency Medicine; PCP Family Medicine; Visit Provider Internal Medicine
DX: T40.694A Poisoning by other narcotics, undetermined, initial encounter (principal); I21.A1 Myocardial infarction type 2; J96.11 Chronic respiratory failure with hypoxia; E87.2 Acidosis; Z66 Do not resuscitate; J98.4 Other disorders of lung; E11.42 Type 2 diabetes mellitus with diabetic polyneuropathy; I10 Essential (primary) hypertension; E78.5 Hyperlipidemia, unspecified; E03.9 Hypothyroidism, unspecified; F32.9 Major depressive disorder, single episode, unspecified; F41.9 Anxiety disorder, unspecified; Z99.81 Dependence on supplemental oxygen; Z79.4 Long term (current) use of insulin; Z87.891 Personal history of nicotine dependence; Z79.899 Other long term (current) drug therapy
CPT/HCPCS: 36415; 71045; 80048; 80053; 80307; 80329; 81001; 82803; 82962; 83605; 84484; 85025; 85610; 85730; 87040; 87086; 87426; 93005; 94002; 97162; 97166; 99285; J7030; A4216; G0480; J2310